=== PATIENT | male | born 1970 | race Caucasian/White ===

== ENCOUNTER 2023-04-25 11:08 | Emergency (ER) | payer BC, OTHER ==
[~2023-04-25] VITALS: Ht 177.8 cm; Wt 117.9 kg
[2023-04-25] MEDS ORDERED: ONDANSETRON HCL/PF 4 MG/2 ML VIAL ONE ×2 (11:17→12:43)
[2023-04-25] MEDS ORDERED: IV NS 0.9% 1,000 ML BAG IV ONE (11:30)
[2023-04-25] MEDS ORDERED: ONDANSETRON HCL/PF 4 MG/2 ML VIAL IVP ONE (11:30)
[2023-04-25 11:58] LABS: BASOPHILS # (AUTO) 0.1 K/uL (0.0-0.2); BASOPHILS % (AUTO) 0.9 % (0.0-2.0); HEMATOCRIT 47 % (39-51); HEMOGLOBIN 16.2 g/dL (13.5-17.5); LYMPHOCYTES # (AUTO) 0.9 K/uL (0.8-4.8); LYMPHOCYTES % (AUTO) 15.3 % (20.0-44.0); MEAN CORPUSCULAR HEMOGLOBIN 31 PG (26.0-33.0); MEAN CORPUSCULAR HGB CONC 35 g/dl (31.0-36.0); MEAN CORPUSCULAR VOLUME 89 fL (80-96); MONOCYTES # (AUTO) 0.5 K/uL (0.1-1.30); MONOCYTES % (AUTO) 8.1 % (2.0-12.0); NEUTROPHILS # (AUTO) 4.6 K/uL (1.8-8.9); NEUTROPHILS % (AUTO) 75.7 % (43.0-81.0); PLATELET COUNT (AUTO) 189 K/uL (150-450); RED BLOOD CELL COUNT(AUTO) 5.23 MIL/uL (4.5-6.0); RED CELL DISTRIBUTION WIDTH 13.4 % (11.5-15.0); WHITE BLOOD COUNT (AUTO) 6.1 K/uL (4.3-11.0)
[2023-04-25 12:02] LABS: MAGNESIUM 2.1 mg/dL (1.8-2.4)
[2023-04-25 12:05] LABS: ALANINE AMINOTRANSFERASE 33 U/L (12-78); ALBUMIN 3.8 g/dL (3.4-5.0); ALKALINE PHOSPHATASE 85 U/L (46-116); ASPARTATE AMINOTRANSFERASE 39 U/L (15-37); BILIRUBIN,DIRECT 0.3 mg/dL (0.0-0.2); CALCIUM, SERUM 8.7 mg/dL (8.5-10.1); CARBON DIOXIDE 21 mmol/L (21-32); CHLORIDE 101 mmol/L (98-107); CREATININE 1.6 mg/dL (0.6-1.3); GLUCOSE 110 mg/dL (74-106); POTASSIUM 3.8 mmol/L (3.5-5.1); SODIUM SERUM 136 mmol/L (136-145); TOTAL PROTEIN, SERUM 7.5 g/dL (6.4-8.2); UREA NITROGEN, BLOOD 35 mg/dL (7-18)
[2023-04-25] MEDS ORDERED: GUAIFENESIN/CODEINE 10 ML UDC ONE (12:50)
[2023-04-25] MEDS ORDERED: ONDANSETRON HCL/PF - ER 4 MG/2 ML VIAL IV ONE (13:00)
[2023-04-25] MEDS ORDERED: GUAIFENESIN/CODEINE 10 ML UDC PO ONE (13:00)
[2023-04-25] MEDS ORDERED: IV NS 0.9% 1,000 ML IV ONE (13:30)
[2023-04-25] MEDS ORDERED: ONDA4TAB5 PO (15:37)
[2023-04-25] MEDS ORDERED: BENZ-13 PO (15:37)
[2023-04-25] MEDS ORDERED: GUAI10SY3 PO (15:37)
[2023-04-25 15:47] VITALS: BP 125/85; TEMP 98.8; O2SAT 95
== END 2023-04-25 15:47 | disposition home or self-care (01) ==
LOC: ER 11:19
DX: B34.9 Viral infection, unspecified (principal); N28.9 Disorder of kidney and ureter, unspecified; K52.9 Noninfective gastroenteritis and colitis, unspecified; R05.9 Cough, unspecified; E86.0 Dehydration; J44.9 Chronic obstructive pulmonary disease, unspecified; F17.210 Nicotine dependence, cigarettes, uncomplicated
CPT/HCPCS: 99284; 96374; 71045; 96361; 93005; 96376; 85025; 80048; 83690; 80076; 83735; 36415; 84484; J2405 ×3; J7030 ×2